=== PATIENT | female | born 1960 | race Caucasian/White ===

== ENCOUNTER 2016-08-08 09:03 | Outpatient (CLI) | END 2016-08-08 09:04 | disposition home or self-care (01) | LOC: LAB 09:03 | PROVIDERS: ATTEND Family Medicine | DX: E03.8 Other specified hypothyroidism (principal) | CPT/HCPCS: 36415; 84439; 84443 ==

== ENCOUNTER 2017-02-15 06:47 | Outpatient (CLI) ==
[2017-02-15 07:49] LABS: BASOPHILS % (AUTO) 0.6 % (0.0-3.0); EOSINOPHILS # (AUTO) 0.3 K/ul (0.0-0.7); EOSINOPHILS % (AUTO) 5.1 % (0.0-7.0); HEMATOCRIT 39.9 % (37.0-47.0); HEMOGLOBIN 13.3 g/dl (12.0-16.0); IMMATURE GRANULOCYTE % (AUTO) 0.6 % (0.0-5.0); LYMPHOCYTES # (AUTO) 1.9 K/uL (0.60-3.4); LYMPHOCYTES % (AUTO) 29.2 (10.0-50.0); MEAN CORPUSCULAR HEMOGLOBIN 27.7 pg (27.0-31.0); MEAN CORPUSCULAR HGB CONC 33.3 (31.8-35.4); MONOCYTES # (AUTO) 0.6 K/uL (0.4-2.0); MONOCYTES % (AUTO) 8.4 (0-10); NEUTROPHILS # (AUTO) 3.7 K/ul (2.0-6.9); NEUTROPHILS % (AUTO) 56.1; PLATELET COUNT 243 10^3/uL (140-440); RED BLOOD COUNT 4.81 10^6/ul (4.20-5.40); WHITE BLOOD COUNT 6.65 K/ul (4.6-10.2)
[2017-02-15 08:28] LABS: ALBUMIN 3.6 g/dL (3.4-5.0); ALBUMIN/GLOBULIN RATIO 1.2; ANION GAP 12.9; BILIRUBIN,TOTAL 0.48 mg/dL (0.00-1.20); BUN/CREATININE RATIO 13.33; CALCIUM 9.2 mg/dL (8.2-10.2); CHOL/HDL RATIO 3.4 (4.5-5.5); CREATININE 0.75 mg/dL (0.60-1.30); POTASSIUM 3.9 mmol/L (3.5-5.10); TOTAL PROTEIN 6.6 g/dL (6.4-8.2)
== END 2017-02-15 06:48 | disposition home or self-care (01) ==
LOC: LAB 06:47
PROVIDERS: ATTEND Family Medicine
DX: E03.8 Other specified hypothyroidism (principal)
CPT/HCPCS: 36415; 80053; 80061; 82306; 84443; 85025

== ENCOUNTER 2017-09-06 06:35 | Outpatient (CLI) | payer OTHER | END 2017-09-06 06:36 | disposition home or self-care (01) | LOC: LAB 06:35 | PROVIDERS: ATTEND Family Medicine | DX: Z13.6 Encounter for screening for cardiovascular disorders (principal); E03.8 Other specified hypothyroidism | CPT/HCPCS: 36415; 80053; 80061; 82306; 84443; 85025 ==

== ENCOUNTER 2018-03-04 06:46 | Outpatient (CLI) | payer OTHER | END 2018-03-04 06:47 | disposition home or self-care (01) | LOC: LAB 06:46 | PROVIDERS: ATTEND Family Medicine | DX: E03.8 Other specified hypothyroidism (principal) | CPT/HCPCS: 36415; 84443 ==